=== PATIENT | male | born 1960 | race Caucasian/White ===

== ENCOUNTER 2016-06-11 09:50 | Emergency (ER) | payer MEDICAID ==
[2015-04-06 14:08] VITALS: Ht 170.2 cm; Wt 77.1 kg
[~2016-06-11] VITALS: Ht 170.2 cm; Wt 77.1 kg
[~2016-06-11 09:50] MED LIST: ALBU2.5V7 INH; CARV6.2554 PO; FOLI0.4T2 PO; FURO-149 PO; LISI-600 PO; LOSA50TA3 PO; POTA-118 PO; SPIR25TA4 PO; THIA100T13 PO
[2016-06-11 09:58] VITALS: BP 165/94; PULSE 92; RESP 16; TEMP 98.6; O2SAT 98
--- NOTE | 2016-06-11 10:02 | NUR ---
Patient to ER bed 8 to gown for evaluation. Side rails up. Report given to MEMO ROGER.
--- NOTE | 2016-06-11 10:05 | NUR ---
PLACED IN BED 7, REPORT GIVE TO IRIS ROGER
--- NOTE | 2016-06-11 10:08 | NUR ---
left [place] hit on a piece of wood with open wound a week ago, wound reopened and active bleeding after scraching and bumping it today.pressure dressing with acwrap placed by the patient prior to arrival. pt on coumadin due to heart problem.
--- NOTE | 2016-06-11 10:14 | NUR ---
ER at bedside examining patient.
[2016-06-11] MEDS ORDERED: LIDOCAINE 2%, 20 ML MDV INJ ONE (10:45)
[2016-06-11] MEDS ORDERED: LIDOCAINE/EPI 1% 1:100000 20 ML VIAL INJ ONE (11:00)
--- NOTE | 2016-06-11 11:07 | NUR ---
lac tray,gloves,11 blade,iodine,NS,4X4 set up at the bedside.
[2016-06-11 11:42] LABS: BASOPHILS % (AUTO) 0.6 % (0.0-2.0); EOSINOPHILS # (AUTO) 0.2 K/uL (0.0-0.4); EOSINOPHILS % (AUTO) 2.2 % (0.0-4.0); HEMOGLOBIN 11.4 g/dL (14.0-18.0); LYMPHOCYTES # (AUTO) 0.9 K/uL (1.0-5.5); LYMPHOCYTES % (AUTO) 12.8 % (20.5-51.5); MEAN CORPUSCULAR HEMOGLOBIN 32 pg (27-31); MEAN CORPUSCULAR HGB CONC 35 % (32-36); MEAN CORPUSCULAR VOLUME 91 fL (79.0-98.0); MONOCYTES # (AUTO) 0.4 K/uL (0.0-1.0); MONOCYTES % (AUTO) 6.5 % (1.7-9.3); NEUTROPHILS # (AUTO) 5.4 K/uL (1.8-7.7); NEUTROPHILS % (AUTO) 77.9 % (40.0-70.0); PLATELET COUNT (AUTO) 288 K/uL (130-430); RED BLOOD CELL COUNT(AUTO) 3.63 MIL/uL (4.2-6.2); RED CELL DISTRIBUTION WIDTH 13.5 % (9.0-15.0); WHITE BLOOD COUNT (AUTO) 6.9 K/uL (4.8-10.8)
[2016-06-11 11:54] LABS: PROTHROMBIN TIME 67.5 SECS (9.5-12.5)
[2016-06-11 11:56] LABS: INR 5.9 (0.80-1.20)
--- NOTE | 2016-06-11 12:08 | NUR ---
lac repaired by Dr dunaway with 3 stitches to left [place], pt tolerated well,dressing with bactrician and 4x4 gauze and kirlex.
[2016-06-11] MEDS ORDERED: BACITRACIN 1 GM OINT TP ONE ×2 (12:15→12:21)
--- NOTE | 2016-06-11 12:30 | NUR ---
Patient given written and verbal discharge instructions and verbalizes understanding. ER MD discussed with patient the results and treatment provided. Patient in stable condition. ID arm band removed. Patient educated on pain management and to follow up with PMD. Pain Scale 0/10 . Opportunity for questions provided and answered.
[2016-06-11 12:32] VITALS: BP 148/94; PULSE 92; RESP 16; TEMP 98.6; O2SAT 98
== END 2016-06-11 12:30 | disposition home or self-care (01) ==
LOC: SED 09:50
DX: S81.812A Laceration without foreign body, left lower leg, initial encounter (principal); T45.511A Poisoning by anticoagulants, accidental (unintentional), initial encounter; J44.9 Chronic obstructive pulmonary disease, unspecified; Z88.0 Allergy status to penicillin; Z86.79 Personal history of other diseases of the circulatory system; W22.8XXA Striking against or struck by other objects, initial encounter; Y93.89 Activity, other specified; Y92.89 Other specified places as the place of occurrence of the external cause; Y99.8 Other external cause status
CPT/HCPCS: 36415; 85025; 85610-TC; 85730-TC; 99284

== ENCOUNTER 2017-12-08 10:51 | Inpatient (IN) | payer MEDICAID ==
[~2017-12-08] VITALS: Ht 170.2 cm; Wt 74.8 kg
[~2017-12-08 10:51] MED LIST changes: -ALBU2.5V7 INH; -LISI-600 PO; -POTA-118 PO; +POTA10TA15 PO; -SPIR25TA4 PO; +SPIR25TA6 PO
[2017-12-08] MEDS ORDERED: ASPIRIN 81 MG TAB.CHEW PO ONE (11:00)
[2017-12-08 11:01] VITALS: BP_SYST 157
[2017-12-08] MEDS ORDERED: FUROSEMIDE 100 MG/10 ML VIAL IVP ONE (11:30)
[2017-12-08] MEDS ORDERED: WARF4TAB2 PO (11:30)
[2017-12-08 11:51] LABS: BILIRUBIN,URINE 2+ (NEGATIVE); BLOOD, URINE 3+ (NEGATIVE); COLOR,URINE YELLOW (YELLOW); GLUCOSE,URINE NEGATIVE (NEGATIVE); KETONES,URINE NEGATIVE (NEGATIVE); LEUKOCYTE ESTERASE ,URINE 1+ (NEGATIVE); NITRITE, URINE POSITIVE (NEGATIVE); PROTEIN URINE 3+ (NEGATIVE)
[2017-12-08 11:53] LABS: CALCIUM 9.5 mg/dL (8.4-11.0); CREATININE 1.7 mg/dL (0.55-1.30); POTASSIUM 4.1 mmol/L (3.5-5.1)
[2017-12-08 11:56] LABS: CLARITY/URINE CLOUDY (CLEAR)
[2017-12-08 11:56] LABS: INR 1.2 (0.80-1.20); PROTHROMBIN TIME 11.9 SECS (9.5-12.5)
[2017-12-08 11:57] LABS: ALBUMIN 3.7 g/dL (3.4-4.8)
[2017-12-08 12:03] LABS: BARBITURATE, URINE NEGATIVE (NEG <=200); METHAMPHETAMINES SCREEN,URINE POSITIVE (NEG <=500); URINE AMPHETAMINE POSITIVE (NEG <=500)
[2017-12-08 12:04] LABS: BENZODIAZEPINE, URINE NEGATIVE (NEG <=150); CANNABINOID, URINE NEGATIVE (NEG <=50); COCAINE, URINE NEGATIVE (NEG <=150); OPIATE, URINE NEGATIVE (NEG <=100); PHENCYCLIDINE SCREEN,URINE NEGATIVE (NEG <=25); UR TRICYCLIC ANTIDEPRESSANTS NEGATIVE (NEG <=300); URINE METHADONE NEGATIVE (NEG <=200); URINE OXYCODONE SCREEN NEGATIVE (NEG <=100); URINE PROPOXYPHENE SCREEN NEGATIVE (NEG <=300)
[2017-12-08 12:08] LABS: BASOPHILS # (AUTO) 0.1 K/uL (0.0-0.2); BASOPHILS % (AUTO) 1.6 % (0.0-2.0); EOSINOPHILS % (AUTO) 0.3 % (0.0-4.0); HEMATOCRIT 45.7 % (36-54); LYMPHOCYTES # (AUTO) 1.5 K/uL (1.0-5.5); LYMPHOCYTES % (AUTO) 16.4 % (20.5-51.5); MEAN CORPUSCULAR HEMOGLOBIN 31 pg (27-31); MEAN CORPUSCULAR HGB CONC 33 % (32-36); MEAN CORPUSCULAR VOLUME 94 fL (79.0-98.0); MONOCYTES # (AUTO) 0.6 K/uL (0.0-1.0); MONOCYTES % (AUTO) 6.6 % (1.7-9.3); NEUTROPHILS % (AUTO) 75.1 % (40.0-70.0); PLATELET COUNT (AUTO) 275 K/uL (130-430); RED BLOOD CELL COUNT(AUTO) 4.85 MIL/uL (4.2-6.2); RED CELL DISTRIBUTION WIDTH 12.6 % (9.0-15.0); WHITE BLOOD COUNT (AUTO) 9.2 K/uL (4.8-10.8)
[2017-12-08 12:11] LABS: RBC,URINE 80-100 /HPF (0-3)
[2017-12-08 12:12] LABS: BACTERIA,URINE FEW /HPF (None Seen); MUCUS,URINE 1+ /LPF (None Seen)
[2017-12-08] MEDS ORDERED: cefTRIAXone 1 GM IVPB PREMIX 50 ML IV ONE (12:30)
[2017-12-08] MEDS ORDERED: METOPROLOL TARTRATE 5 MG/5 ML VIAL IVP ONE (12:45)
[2017-12-08 13:15] VITALS: BP_SYST 133
[2017-12-08 15:21] VITALS: BP_SYST 153
[2017-12-08] MEDS ORDERED: MAGNESIUM SULFATE 50 ML IV PRN (16:45)
[2017-12-08] MEDS ORDERED: ONDANSETRON HCL 4 MG/2 ML VIAL IVP PRN (16:45)
[2017-12-08] MEDS ORDERED: MUPIROCIN 2% TOPICAL OINTMENT 22 GM NS PRN (16:45)
[2017-12-08] MEDS ORDERED: ZOLPIDEM TARTRATE 5 MG TABLET PO PRN (16:45)
[2017-12-08] MEDS ORDERED: POTASSIUM CHLORIDE 20 MEQ TAB.PRT.SR PO PRN (16:45)
[2017-12-08] MEDS ORDERED: MORPHINE 2 MG/ML INJ. SYRINGE IVP PRN ×2 (16:45)
[2017-12-08] MEDS ORDERED: DOCUSATE SODIUM 100 MG CAPSULE PO PRN (16:45)
[2017-12-08] MEDS ORDERED: LORazepam 2 MG/ML VIAL IVP PRN (16:45)
[2017-12-08] MEDS ORDERED: ACETAMINOPHEN 325 MG TABLET PO PRN (16:45)
[2017-12-08] MEDS ORDERED: LEVOFLOXACIN 500 MG/D5W 100 ML IV SCH (17:00)
[2017-12-08 20:00] VITALS: BP_SYST 154
[2017-12-08] MEDS ORDERED: SODIUM BICARBONATE 8.4% JECT 50 MEQ/50 ML SYRINGE IVP ONE (20:00)
[2017-12-08] MEDS ORDERED: EPINEPHrine JECT 1 MG/10 ML SYR IVP ONE (20:00)
[2017-12-08] MEDS ORDERED: SUCCINYLCHOLINE CHLORIDE 20 MG/ML(QUELICIN) IVP ONE (20:00)
[2017-12-08] MEDS ORDERED: CALCIUM CHLORIDE 1 GM/10 ML DISP.SYRIN (14 mEq Ca++/SYR) IV ONE (20:00)
[2017-12-08] MEDS ORDERED: DEXTROSE 50% JECT 50 ML DISP.SYRIN IVP ONE (20:00)
[2017-12-08] MEDS ORDERED: AMIODARONE HCL 150 MG/3ML VIAL IVP ONE (20:00)
[2017-12-08] MEDS ORDERED: LIDOCAINE JECT 2% PF 100 MG/5ML SYRINGE IVP ONE (20:00)
[2017-12-08] MEDS ORDERED: ETOMIDATE 20 MG/ 10 ML VIAL (AMIDATE) IVP ONE (20:00)
[2017-12-08] MEDS ORDERED: ATROPINE SULFATE 1 MG/10 ML SYRINGE IVP ONE (20:00)
[2017-12-08] MEDS ORDERED: HEPARIN SODIUM,PORCINE 5000 UNITS/ML VIAL SUBCUT SCH (21:00)
[2017-12-09] VITALS (8 sets, daily range): BP systolic 90–130
[2017-12-09] MEDS ORDERED: NOREPINEPHRINE BITARTRATE 4 MG in NS 246 ML IV PRN ×2 (00:45→01:00)
[2017-12-09] MEDS ORDERED: NOREPINEPHRINE 4 MG/4 ML VIAL IV ONE (00:47)
[2017-12-09] MEDS ORDERED: DEXTROSE 50% JECT 50 ML DISP.SYRIN ONE ×2 (02:54→02:57)
[2017-12-09] MEDS ORDERED: DEXTROSE 50% JECT 50 ML DISP.SYRIN IVP ONE (03:00)
[2017-12-09] MEDS ORDERED: AMIODARONE HCL 900 MG/18 ML VIAL IV ONE (03:32)
[2017-12-09] MEDS ORDERED: AMIODARONE HCL 900 MG in D5W 482 ML IV STA (03:35)
[2017-12-09] MEDS ORDERED: EPINEPHrine JECT 1 MG/10 ML SYR ONE (03:40)
[2017-12-09] MEDS ORDERED: EPINEPHrine 1 MG/ML AMP ONE (03:43)
[2017-12-09] MEDS ORDERED: EPINEPHrine JECT 2 MG in NS 230 ML IV PRN (03:45)
[2017-12-09] MEDS ORDERED: FUROSEMIDE 40 MG/4 ML VIAL IVP SCH (09:00)
== END 2017-12-09 03:59 | disposition expired | DRG 194 ==
LOC: SED 10:51 → STU 12:29 → SIC 23:47
PROVIDERS: ADMIT General Practice; ATTEND General Practice
PROC: 5A1935Z Respiratory Ventilation, Less than 24 Consecutive Hours (ICD-10-PCS; principal; 2017-12-08)
PROC: 0BH17EZ Insertion of Endotracheal Airway into Trachea, Via Natural or Artificial Opening (ICD-10-PCS; 2017-12-08)
DX: I50.43 Acute on chronic combined systolic (congestive) and diastolic (congestive) heart failure (principal); I46.9 Cardiac arrest, cause unspecified; I24.9 Acute ischemic heart disease, unspecified; J44.9 Chronic obstructive pulmonary disease, unspecified; M25.511 Pain in right shoulder; Z88.0 Allergy status to penicillin; Z79.899 Other long term (current) drug therapy; Z86.711 Personal history of pulmonary embolism; N28.9 Disorder of kidney and ureter, unspecified
CPT/HCPCS: 36415; 36600; 71045; 80053; 80307; 81000-TC; 82150-TC; 82550-TC; 82803-TC; 82962; 83605; 83690-TC; 83880; 84484; 85025; 85379; 85610-TC; 85730-TC; 87040-TC; 87070-TC; 87086; 87205-TC; 92950; 93005; 93306; 94002; 94003; 94640; 96365; 96375; 99285; J0171; J0282; J0330; J0461; J0696; J1644; J1940; J1956; J2060; J2270; J3490; J7050; J7060